=== PATIENT | female | born 1960 | race Two or more races ===

== ENCOUNTER 2024-08-01 12:24 | Inpatient (IN) | payer OTHER, MEDICAID ==
[~2024-08-01] VITALS: Ht 149.9 cm; Wt 45.0 kg
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
[2024-08-01] MEDS: HYDROcodone-ACET 5/325MG TAB PO ONE (13:28)
--- NOTE | 2024-08-01 13:50 | DVH ---
CLINICAL INDICATION: ro fracture TECHNIQUE: 2-view right XY R HUMERUS XRAY Comparison: None FINDINGS/IMPRESSION: : There is no evidence of acute fracture or dislocation. Soft tissues are unremarkable.
--- NOTE | 2024-08-01 14:05 | DVH ---
CLINICAL HISTORY: Rule out fracture. COMPARISON: None TECHNIQUE: Axial CT images of the cervical spine were obtained without IV contrast. Coronal and sagit binh reformatted images were obtained. Axial CT images of the thoracic spine were obtained without IV contrast. All CT scans at this medical facility are performed using dose modulation techniques as justus ropriate to a performed exam including the following: Automated exposure control was utilized; adjust ment of the MA and/or KV according to patient size; and use of iterative reconstruction technique. CTDIvol = 0.07, 0.41, 14.37, 14.48 mGy DLP = 5.21, 28.95, 312.28, 477.45 mGy-cm FINDINGS: Cervical spine: Postsurgical changes of anterior discectomy fusion with interbody grafts C4-C7 surgic al hardware is intact. There is complete or near complete osseous fusion across the C4-C5, C5-C6, and C6-C7 disc spaces. There is also cervical facet fusion at C4-C5, C5-C6 and C6-C7 on the left and C5- C6 on the right. There is straightening of the normal cervical lordosis. Mild anterolisthesis of C3 o n C4. Vertebral body heights are maintained. Posterior elements are intact. No acute fracture. The re st of the disc spaces in the cervical spine are maintained. Prevertebral and paraspinal soft tissues are unremarkable. Thoracic spine: Vertebral body alignment is within normal limits. Vertebral body heights are maintain ed. Posterior elements are intact. No acute fracture. Multilevel mdpp-jo-ckoydpma disc space narrowin g in the thoracic spine with associated mild endplate sclerosis and endplate spurring. Paraspinal sof t tissues are unremarkable. IMPRESSION: 1. Postsurgical changes in the cervical spine as detailed above. 2. No evidence of acute fracture in the cervical spine or thoracic spine. 3. Mild anterolisthesis of C3 on C4. 4. No significant spondylolisthesis in the thoracic spine. 5. Additional findings as detailed above.
--- NOTE | 2024-08-01 14:26 | DVH ---
CLINICAL INFORMATION: Rule out fracture TECHNIQUE: Axial CT images of the lumbar spine were obtained without IV contrast. Coronal and sagitt al reformatted images were obtained, reviewed, and stored. One or more of the following dose reducti on techniques were used: Automated exposure control. Adjustment of mA and/or kV according to patient size. CTDIvol = 18.8 mGy DLP = 596.59 mGy-cm COMPARISON: None FINDINGS: There is a small, rudimentary rib at T12 on the right and no rib seen at T12 on the left. There is a partially sacralized L5 vertebral body at the lumbosacral junction with pseudoarticulation of the enl arged right L5 transverse process with the right sacral ala. Vertebral body alignment is within joselyn l limits. Subtle deformity of the superior endplate of T12, appears chronic, with associated sclerosi s. No significant loss of height. Vertebral body heights are otherwise maintained Posterior elements are intact. Otherwise, no evidence of acute fracture. Paraspinal soft tissues are unremarkable. Soft tissue calcification in the left lower lumbar subcutaneous tissues near the L4-L5 level, likely dyst rophic calcification. Lumbar disc levels: L1-L2: No significant disc/facet abnormality. No significant spinal canal or neural foraminal stenosi s. L2-L3: Mild disc bulge mildly indenting the ventral aspect of the thecal sac. No significant spinal c anal stenosis. Facet hypertrophy with moderate bilateral neural foraminal stenoses. L3-L4: Diffuse disc bulge mildly indenting the ventral aspect of the thecal sac, causing mild spinal canal stenosis. Facet hypertrophy with moderate bilateral neural foraminal stenoses. L4-L5: Moderate disc space narrowing and diffuse disc bulge and left subarticular/foraminal disc prot rusion causing effacement of the left lateral recess. Facet hypertrophy and encroachment of the neura l foramina by the disc bulge contributes to severe left and moderate right neural foraminal stenoses. Likely ujqz-ko-pelznvfm spinal canal stenosis. L5-S1: No significant disc bulge or spinal canal stenosis. Facet hypertrophy with vdgh-bp-sfzzrqgp b ilateral neural foraminal stenoses IMPRESSION: 1. Chronic appearing subtle deformity of the superior endplate of T12 with associated sclerosis. Cor relate with clinical findings. If clinically indicated, MRI could be obtained to further evaluate fo r acute or subacute component. No significant loss of height. 2. Otherwise, no evidence of acute fracture or spondylolisthesis in the lumbar spine. 3. Degenerative disc disease and facet disease in the lumbar spine as detailed above.Additional 4. Findings as detailed above.
--- NOTE | 2024-08-01 16:38 | DVH ---
CLINICAL INFORMATION: 63 years old, Female; acute loss of consciousness. TECHNIQUE: Axial imaging was obtained through the brain without contrast. Coronal and sagittal refor matted images were obtained, reviewed, and stored. Images were reviewed in brain and bone windows. A ll CT scans at this medical facility are performed using dose modulation techniques as appropriate to a performed exam including the following: Automated exposure control was utilized; adjustment of the MA and/or KV according to patient size; and use of iterative reconstruction technique. CTDIvol = 50.3 mGy DLP = 806.56 mGy-cm COMPARISON: None FINDINGS: No acute intracranial hemorrhage. There are postsurgical changes of right frontotemporopar ietal craniectomy. There is up to 0.6 cm midline shift to the left, of uncertain chronicity with no v isualized mass or extra-axial collection identified. There is a lucency in the left basal ganglia raysa suring up to 0.9 cm, may be sequela of chronic lacunar infarct. The ventricles and sulci are within normal limits in size for age. Basal cisterns are patent. Paranasal sinuses and mastoid air cell s are clear. IMPRESSION: 1. No evidence of acute intracranial hemorrhage. 2. Postsurgical changes of prior large right craniectomy. 3. There is up to 0.6 cm midline shift to the left, of uncertain chronicity, with no visualized mass or extra-axial collection identified. The midline shift may be residual sequela of the process for wh ich the patient underwent the craniectomy. There is no uncal herniation. Correlation with clinical fi ndings clinical and surgical history, prior outside imaging recommended. If clinically indicated, MRI could be obtained. 4. Focal chronic appearing lucency in the left basal ganglia, may be sequela of chronic lacunar infar ct.
[2024-08-01 16:39] VITALS: PULSE 88; RESP 16; O2SAT 95
[2024-08-01 16:44] LABS: Basophils # (auto) 0.1 10 ^3/uL (0-0.2); Basophils % (auto) 0.5 % (0.0-2.0); Eosinophils # (auto) 0.1 10 ^3/uL (0-0.8); Eosinophils % (auto) 0.4 % (0.0-7.0); Hematocrit 38.6 % (36.0-46.0); Hemoglobin 12.6 g/dL (12.2-16.2); Lymphocytes % (auto) 14.3 % (10.0-50.0); Mean Corpuscular Hemoglobin 27.5 pg (28.0-32.0); Mean Corpuscular Hgb Conc. 32.6 g/dL (32.0-36.0); Mean Corpuscular Volume 84.2 fL (80.0-100.0); Monocytes % (auto) 6.8 % (0.0-12.0); Nucleated Red Blood Cells % 0.1 %; Platelet Count (auto) 436 10^3/uL (140-450); Red Blood Cells 4.58 10^6/uL (4.0-5.20); Red Cell Distribution Width 18.8 % (11.8-14.3); White Blood Cell 14.1 10^3/uL (4.4-10.8)
[2024-08-01 16:54] LABS: Chloride 105 mmol/L (98-107); Potassium 3.9 mmol/L (3.5-5.1); Sodium 139 mmol/L (136-145)
[2024-08-01 16:55] LABS: Anion Gap 7 (5-15); Calcium 9.4 mg/dL (8.7-10.4); Carbon Dioxide 27 mmol/L (20-31)
[2024-08-01 17:00] LABS: BUN/Creatinine Ratio 11.8 (10.0-20.0)
[2024-08-01 17:05] LABS: Blood Urea Nitrogen 9 mg/dL (9-23); Glucose 116 mg/dL (74-106)
[2024-08-01] MEDS ORDERED: ACETAMINOPHEN 325 MG TAB PO PRN (17:15)
[2024-08-01] MEDS ORDERED: DEXTROSE (50%) 50ML SYRG IV PRN (17:30)
[2024-08-01] MEDS ORDERED: ALBUTEROL SULF 2.5 MG/0.5ML(0.5%) NEB SOLN NEB PRN (17:30)
[2024-08-01] MEDS ORDERED: IPRATROPIUM BROM 0.5 MG/2.5ML INH SOL NEB PRN (17:30)
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
[2024-08-01] MEDS: HYDROcodone-ACET 5/325MG TAB PO PRN (17:32)
[2024-08-01] MEDS: ONDANSETRON HCL 4 MG/2 ML VIAL IV PRN (17:32)
[2024-08-01] MEDS: cefTRIAXone 1GM/50ML D5W 50 ML IV ONE (17:46)
--- NOTE | 2024-08-01 17:52 | DVH ---
EXAM: XY CHEST XRAY 1 VIEW TECHNIQUE: Single frontal chest radiograph CLINICAL HISTORY: right sided chest pain COMPARISON: None Findings/Impression: Frontal chest radiograph demonstrates no acute osseous or superficial soft tissue abnormalities. The trachea is midline. The cardiac silhouette and mediastinum are within normal limits. No pneumothorax, pleural effusions, or consolidations.
[2024-08-01 18:04] VITALS: O2SAT 93
--- NOTE | 2024-08-01 18:31 | DVH ---
Bilateral lower extremity venous duplex Clinical History: r/o dvts Comparison: None Technique: Duplex Doppler evaluation of the deep venous systems of both lower extremities from the common femora l veins to the popliteal veins including color Doppler and spectral/pulsed waveform analysis was perf ormed. Findings: RIGHT SIDE: The common femoral vein demonstrates appropriate compressibility and waveform variability. There is compressibility/patency of the great saphenous vein at the proximal thigh. The femoral vein demonstrates appropriate compressibility and waveform variability. The deep femoral vein demonstrates appropriate compressibility and waveform variability. The popliteal vein demonstrates appropriate compressibility and waveform variability. There is normal compressibility at the tibioperoneal trunk. LEFT SIDE: The common femoral vein demonstrates appropriate compressibility and waveform variability. There is compressibility/patency of the great saphenous vein at the proximal thigh. The femoral vein demonstrates appropriate compressibility and waveform variability. The deep femoral vein demonstrates appropriate compressibility and waveform variability. The popliteal vein demonstrates appropriate compressibility and waveform variability. There is normal compressibility at the tibioperoneal trunk. Impression: No right or left femoropopliteal venous thrombosis.
[2024-08-01 18:35] LABS: INR 0.97 (0.9-1.15); Prothrombin Time 10.3 sec (9.3-11.8)
[2024-08-01 19:00] VITALS: BP 122/62; PULSE 91; RESP 18; TEMP 98.2; O2SAT 95
[2024-08-01 19:24] LABS: Urine Bacteria None Seen /hpf (None Seen)
[2024-08-01 19:38] LABS: Urine Blood Negative /uL (Negative); Urine Clarity Clear (Clear); Urine Color Light-Yellow (Yellow); Urine Protein, UAD Negative (Negative); Urine Specific Gravity 1.008 (1.001-1.035); Urine Squamous Epithelial Cell FEW /hpf (<5); Urine Urobilinogen Normal (Negative); Urine WBC 1 /HPF (0-5); Urine pH 6.5 (5.0-9.0)
[2024-08-01 19:46] LABS: Barbiturate Scree,Urine Neg (NEGATIVE); Opiate Scree,Urine Pos (NEGATIVE)
[2024-08-01 19:47] LABS: Amphetamine Screen, Urine Neg (NEGATIVE); Benzodiazephine Screen, Urine Neg (NEGATIVE); Cannabinoid Screen, Urine Neg (NEGATIVE); Cocaine Screen, Urine Neg (NEGATIVE); Phencyclidine Screen, Urine Neg (NEGATIVE)
[2024-08-01 19:54] VITALS: BP 151/75; PULSE 89; RESP 16; TEMP 98; O2SAT 94
[2024-08-01] MEDS ORDERED: ACCU-CHEK COMFORT CURVE STRIP VI SCH (22:00)
[2024-08-01] MEDS ORDERED: InsuLIN REG 1unit/0.01ml Soln (100units/ml) SC SCH (22:00)
[2024-08-02] MEDS ORDERED: cefTRIAXone 1GM/50ML D5W 50 ML IV SCH (09:00)
== END 2024-08-01 21:12 | disposition left against medical advice (07) | DRG 552 ==
LOC: ER 12:24 → EDBD 12:24 → OVERFLOW 17:04
DX: M54.9 Dorsalgia, unspecified (principal); M54.2 Cervicalgia; M79.661 Pain in right lower leg; I10 Essential (primary) hypertension; E78.5 Hyperlipidemia, unspecified; E11.9 Type 2 diabetes mellitus without complications; D72.829 Elevated white blood cell count, unspecified; M43.12 Spondylolisthesis, cervical region; J44.89 Other specified chronic obstructive pulmonary disease; M51.369 Other intervertebral disc degeneration, lumbar region without mention of lumbar back pain or lower extremity pain; M47.819 Spondylosis without myelopathy or radiculopathy, site unspecified; Z88.1 Allergy status to other antibiotic agents; Z88.0 Allergy status to penicillin; Z86.73 Personal history of transient ischemic attack (TIA), and cerebral infarction without residual deficits; Z86.718 Personal history of other venous thrombosis and embolism; Z53.29 Procedure and treatment not carried out because of patient's decision for other reasons
CPT/HCPCS: 36415; 70450; 71045; 72125; 72128; 72131; 73060; 80048; 80307; 81001; 82962; 83036; 85025; 85610; 93970; G0378; J2405